=== PATIENT | female | born 1960 ===

== ENCOUNTER 2018-07-19 08:30 | Observation (INO) | payer MEDICAID ==
--- NOTE | 2018-07-19 08:38 | C.PDOC ---
History Of Present Illness 57 y/o female presents to the ER complaining of dizziness which has been present for the past few days. Patient states that she was evaluated for dizziness in [facility] yesterday. She had a negative CT Head and she was discharge with prescription for Meclizine. She notes that her dizziness feels like a vertigo, constant, since yesterday when she was seen. No trauma. She notes taking meclizine yesterday with mild improvement. She denies any new diets , GI, complaints or dark or bloody stool .Denies having CP, SOB, nausea, vomiting, and falls. Time Seen by Provider: 07/19/18 08:37 Chief Complaint (Nursing): Dizziness/Lightheaded History Per: Patient History/Exam Limitations: no limitations Onset/Duration Of Symptoms: Days Current Symptoms Are (Timing): Still Present Past Medical History Reviewed: Historical Data, Nursing Documentation, Vital Signs Vital Signs: Last Vital Signs Temp 98.8 F 07/19/18 08:33 Pulse 66 07/19/18 08:33 Resp 18 07/19/18 08:33 BP 113/78 07/19/18 08:33 Pulse Ox 98 07/19/18 10:37 - Medical History PMH: No Chronic Diseases Surgical History: No Surg Hx Family History: States: No Known Family Hx - Social History Hx Alcohol Use: No Hx Substance Use: No - Immunization History Hx Tetanus Toxoid Vaccination: No Hx Influenza Vaccination: No Hx Pneumococcal Vaccination: No Review Of Systems Except As Marked, All Systems Reviewed And Found Negative. Constitutional: Negative for: Fever, Chills Cardiovascular: Negative for: Chest Pain Respiratory: Negative for: Shortness of Breath Gastrointestinal: Negative for: Nausea, Vomiting Neurological: Positive for: Dizziness Physical Exam - Physical Exam Appears: Non-toxic, No Acute Distress Skin: Normal Color, Warm, Dry Head: Atraumatic, Normacephalic Eye(s): bilateral: Normal Inspection, PERRL, EOMI Nose: Normal Oral Mucosa: Moist Neck: Supple Chest: Symmetrical Cardiovascular: Rhythm Regular Respiratory: Normal Breath Sounds, No Rales, No Rhonchi, No Wheezing Extremity: Normal ROM Neurological/Psych: Oriented x3, Normal Speech, Normal Cognition, Normal Cranial Nerves, No Cerebellar Signs, Normal Motor, Normal Sensation Gait: Steady Other Neurological Findings: No Tongue Deviation Extremity: Right: No Drift, Left: No Drift ED Course And Treatment - Laboratory Results Result Diagrams: 07/19/18 09:48 07/19/18 09:48 O2 Sat by Pulse Oximetry: 98 (RA) Pulse Ox Interpretation: Normal Medical Decision Making Medical Decision Makin yr old female p/w recurrent dizziness after negative CT. Normal neuro exam, good gait, good finger to nose, good heel to zee, no cerebellar signs. However with recurrent dizziness refractory to meclizine will likely require observation for resolution of symptoms. No meningeal signs on my exam Plan: --Labs --ECG --Meclizine PO --IV Fluids 1312 pt notes that she is still dizzy, given unremarkable labs, well exam, will seek obs appreciate consult w/ Cristopher Dailey to admit to his service. Disposition - Disposition Disposition: HOSPITALIZED Disposition Time: 13:10 Condition: GOOD Instructions: Vertigo (a Type of Dizziness) Forms: [facility] (Serbian) - Clinical Impression Clinical Impression: Dizziness, Dizziness - Scribe Statement The provider has reviewed the documentation as recorded by the Adonis Tay Provider Attestation: All medical record entries made by the Elizabethibalec were at my direction and personally dictated by me. I have reviewed the chart and agree that the record accurately reflects my personal performance of the history, physical exam, medical decision making, and the department course for this patient. I have also personally directed, reviewed, and agree with the discharge instructions and disposition.
[2018-07-19 09:54] LABS: BASO % 0.8 % (0.0-2.0); EOS # 0.2 K/uL (0.0-0.7); EOS % 3.9 % (0.0-4.0); HEMOGLOBIN 13.5 g/dL (11.0-16.0); LYMPH # 1.7 K/uL (1.0-4.3); LYMPH % 33.4 % (20.0-40.0); MEAN CELL VOLUME 94.1 fL (81.0-99.0); MEAN CORPUSCULAR HEMOGLOBIN 32.1 pg (27.0-31.0); MEAN CORPUSCULAR HGB CONC 34.1 g/dL (33.0-37.0); MEAN PLATELET VOLUME 7.3 fL (7.2-11.7); MONO # 0.4 K/uL (0.0-0.8); MONO % 8.1 % (0.0-10.0); NEUT # 2.7 K/uL (1.8-7.0); NEUT % 53.8 % (50.0-75.0); NRBC % 0.1 % (0.0-2.0); RBC 4.21 Mil/uL (3.80-5.20); RED CELL DISTRIBUTION WIDTH 13.8 % (11.5-14.5)
[2018-07-19] MEDS ORDERED: Sodium Chloride 0.9% 1,000 ML IV ONE (09:59)
[2018-07-19 10:33] LABS: ALB/GLOB RATIO 1.6 (1.0-2.1); ALBUMIN 4.4 g/dL (3.5-5.0); ALT/SGPT 42 U/L (9-52); AST/SGOT 33 U/L (14-36); BLOOD UREA NITROGEN 11 mg/dL (7-17); CALCIUM 9.2 mg/dl (8.6-10.4); GFR NON-AFRICAN AMERICAN > 60
[2018-07-19] MEDS ORDERED: Sodium Chloride 0.9% 1,000 ML ONE (11:06)
[2018-07-19 12:29] LABS: SQUAMOUS EPITHIAL 2 /hpf (0-5); URINE BILIRUBIN NEGATIVE (NEGATIVE); URINE BLOOD 1+ (NEGATIVE); URINE CLARITY Clear (Clear); URINE COLOR Straw (YELLOW); URINE GLUCOSE (UA) NORMAL (Normal); URINE LEUKOCYTE ESTERASE NEG Leu/uL (Negative); URINE PROTEIN NEGATIVE (NEGATIVE); URINE UROBILINOGEN NORMAL mg/dL (0.2-1.0)
--- NOTE | 2018-07-19 16:43 | CP.PCM.HP ---
Past Patient History - Infectious Disease Hx of Infectious Diseases: None - Past Social History Smoking Status: Never Smoked - PSYCHIATRIC Hx Substance Use: No - SURGICAL HISTORY Hx Surgeries: No - ANESTHESIA Hx Anesthesia: No Meds Allergies/Adverse Reactions: Allergies Allergy/AdvReac Type Severity Reaction Status Date / Time No Known Allergies Allergy Verified 07/18/18 07:44 Results - Vital Signs Recent Vital Signs: Last Vital Signs Temp 98.0 F 07/19/18 16:00 Pulse 55 L 07/19/18 16:00 Resp 20 07/19/18 16:00 BP 147/80 07/19/18 16:00 Pulse Ox 98 07/19/18 16:00 - Labs Result Diagrams: 07/19/18 09:48 07/19/18 09:48 Labs: Laboratory Results - last 24 hr 07/19/18 07/19/18 07/19/18 09:48 09:48 12:21 WBC 5.0 RBC 4.21 Hgb 13.5 Hct 39.6 MCV 94.1 MCH 32.1 H MCHC 34.1 RDW 13.8 Plt Count 295 MPV 7.3 Neut % (Auto) 53.8 Lymph % (Auto) 33.4 [place] % (Auto) 8.1 Eos % (Auto) 3.9 Baso % (Auto) 0.8 Neut # (Auto) 2.7 Lymph # (Auto) 1.7 [place] # (Auto) 0.4 Eos # (Auto) 0.2 Baso # (Auto) 0.0 Sodium 144 Potassium 4.0 Chloride 107 Carbon Dioxide 29 Anion Gap 12 BUN 11 Creatinine 0.8 Est GFR ( Amer) > 60 Est GFR (Non-Af Amer) > 60 Random Glucose 100 Calcium 9.2 Magnesium 2.3 Total Bilirubin 0.7 AST 33 ALT 42 Alkaline Phosphatase 81 Troponin I < 0.0120 Total Protein 7.2 Albumin 4.4 Globulin 2.8 Albumin/Globulin Ratio 1.6 TSH 3rd Generation 2.02 Urine Color Straw Urine Clarity Clear Urine pH 6.0 Ur Specific [place] 1.006 Urine Protein Negative Urine Glucose (UA) Normal Urine Ketones Negative Urine Blood 1+ H Urine Nitrate Negative Urine Bilirubin Negative Urine Urobilinogen Normal Ur Leukocyte Esterase Neg Urine WBC (Auto) 1 Urine RBC (Auto) < 1 Ur Squamous Epith Cells 2
[2018-07-19] MEDS: Sodium Chloride 0.9% 1,000 ML IV SCH (17:40)
[2018-07-20] MEDS: Sodium Chloride 0.9% 1,000 ML IV SCH ×3 (03:03→23:30)
--- NOTE | 2018-07-20 07:35 | CP.PCM.CON ---
History of Present Illness - History of Present Illness History of Present Illness: CONSULTATION DICTATED DIZZINESS NON FOCAL HYDRATION ANTIVERT PRN IF MRI BRAIN NORMAL D/C HOME AND FOLLOW UP OP Past Patient History - Infectious Disease Hx of Infectious Diseases: None - Past Social History Smoking Status: Never Smoked - PSYCHIATRIC Hx Substance Use: No - SURGICAL HISTORY Hx Surgeries: No - ANESTHESIA Hx Anesthesia: No Meds Allergies/Adverse Reactions: Allergies Allergy/AdvReac Type Severity Reaction Status Date / Time No Known Allergies Allergy Verified 07/18/18 07:44 - Medications Medications: Current Medications Famotidine (Pepcid) 20 mg PO DAILY [facility] Sodium Chloride (Sodium Chloride 0.9%) 1,000 mls @ 100 mls/hr IV .Q10H [facility] Last Admin: 07/20/18 03:03 Dose: 100 mls/hr Meclizine HCl (Antivert) 25 mg PO Q6 PRN PRN Reason: Dizziness Pneumococcal Polyvalent Vaccine (Pneumovax 23 Vaccine) 0.5 ml IM .ONCE ONE Stop: 07/20/18 10:01 Results - Vital Signs Recent Vital Signs: Last Vital Signs Temp 98.1 F 07/20/18 00:42 Pulse 56 L 07/20/18 00:42 Resp 20 07/20/18 00:42 BP 100/56 L 07/20/18 00:42 Pulse Ox 98 07/20/18 00:42 - Labs Result Diagrams: 07/19/18 09:48 07/19/18 09:48 Labs: Laboratory Results - last 24 hr 07/19/18 07/19/18 07/19/18 09:48 09:48 12:21 WBC 5.0 RBC 4.21 Hgb 13.5 Hct 39.6 MCV 94.1 MCH 32.1 H MCHC 34.1 RDW 13.8 Plt Count 295 MPV 7.3 Neut % (Auto) 53.8 Lymph % (Auto) 33.4 [place] % (Auto) 8.1 Eos % (Auto) 3.9 Baso % (Auto) 0.8 Neut # (Auto) 2.7 Lymph # (Auto) 1.7 [place] # (Auto) 0.4 Eos # (Auto) 0.2 Baso # (Auto) 0.0 Sodium 144 Potassium 4.0 Chloride 107 Carbon Dioxide 29 Anion Gap 12 BUN 11 Creatinine 0.8 Est GFR ( Amer) > 60 Est GFR (Non-Af Amer) > 60 Random Glucose 100 Calcium 9.2 Magnesium 2.3 Total Bilirubin 0.7 AST 33 ALT 42 Alkaline Phosphatase 81 Troponin I < 0.0120 Total Protein 7.2 Albumin 4.4 Globulin 2.8 Albumin/Globulin Ratio 1.6 TSH 3rd Generation 2.02 Urine Color Straw Urine Clarity Clear Urine pH 6.0 Ur Specific [place] 1.006 Urine Protein Negative Urine Glucose (UA) Normal Urine Ketones Negative Urine Blood 1+ H Urine Nitrate Negative Urine Bilirubin Negative Urine Urobilinogen Normal Ur Leukocyte Esterase Neg Urine WBC (Auto) 1 Urine RBC (Auto) < 1 Ur Squamous Epith Cells 2
[2018-07-20] MEDS ORDERED: Pneumococcal 23-Valent Vaccine IM ONE ×2 (10:00→15:00)
[2018-07-20] MEDS: Enoxaparin 40 mg Syringe SC SCH (10:45)
--- NOTE | 2018-07-20 11:48 | MRI ---
Date of service: 07/20/2018 PROCEDURE: MRI BRAIN WITHOUT CONTRAST HISTORY: dizziness COMPARISON: Noncontrast head CT 07/18/2018. TECHNIQUE: Multiplanar, multisequence MR images of the brain were obtained without intravenous contrast enhancement. FINDINGS: HEMORRHAGE: None DWI: No evidence of an acute or early subacute infarction. BRAIN PARENCHYMA: Good corticomedullary differentiation is seen. Quite limited, proportional, diffuse expansion of the ventriculosulcal and cisternal spaces is appreciated with white matter lucency compatible with diffuse cerebral atrophy and chronic microangiopathy. No suspicious extra-axial fluid collection is identified and the midline brain anatomy appears grossly nonfocal as imaged. There is no mass effect throughout. VENTRICLES: Unremarkable. No hydrocephalus. CRANIUM: Unremarkable. ORBITS: Grossly unremarkable. PARANASAL SINUSES/MASTOIDS: Clear VASCULAR SYSTEM: Skull base flow voids intact. OTHER FINDINGS: Empty sella noted. IMPRESSION: Age-appropriate limited age related neuro degenerative change are identified involving the cerebrum, as discussed above. No acute intracranial findings by standard CT criteria. Empty sella noted.
--- NOTE | 2018-07-20 12:59 | CARD ---
APPROVED REPORT Date of service: 07/19/2018 EKG Measurement Heart [id number] <Conclusion> Sinus bradycardia Otherwise normal ECG
--- NOTE | 2018-07-20 13:08 | CP.PCM.PN ---
Subjective - Date & Time of Evaluation Date of Evaluation: 07/20/18 Time of Evaluation: 11:00 - Subjective Subjective: clinically same Objective - Vital Signs/Intake and Output Vital Signs (last 24 hours): Temp Pulse Resp BP Pulse Ox 98.4 F 57 L 20 104/69 99 07/20/18 07:25 07/20/18 07:25 07/20/18 07:25 07/20/18 07:25 07/20/18 07:25 Intake and Output: 07/20/18 07/20/18 06:59 18:59 Intake Total 800 Balance 800 - Medications Medications: Current Medications Enoxaparin Sodium (Lovenox) 40 mg SC DAILY [facility] Last Admin: 07/20/18 10:45 Dose: 40 mg Famotidine (Pepcid) 20 mg PO DAILY [facility] Last Admin: 07/20/18 10:45 Dose: 20 mg Sodium Chloride (Sodium Chloride 0.9%) 1,000 mls @ 100 mls/hr IV .Q10H [facility] Last Admin: 07/20/18 03:03 Dose: 100 mls/hr Meclizine HCl (Antivert) 25 mg PO Q6 PRN PRN Reason: Dizziness Last Admin: 07/20/18 10:46 Dose: 25 mg - Labs Labs: 07/19/18 09:48 07/19/18 09:48
--- NOTE | 2018-07-20 20:42 | CON ---
DATE: 07/20/2018 LOCATION: The patient is in room #553, bed A. ATTENDING PHYSICIAN: Jeremías Rosado MD TIME OF EVALUATION: 07:10 a.m. REASON FOR THE CONSULTATION: Dizziness. CHIEF COMPLAINT: The patient was brought into [facility] second time with a history of recurrent dizziness. From neurological point of view, I was called in to evaluate her for further management. HISTORY OF PRESENT ILLNESS: Ms. Alvina Victoria is a 57-year-old right-handed female presenting with recurrent episode of dizziness. She came to the emergency room in the past and she was sent home with conservative management; however, the dizziness is not getting better. They decided to come to the hospital for further evaluation. This dizziness is not associating with any headache, visual or bulbar dysfunction. No history of preceding viral illness or travel. She never had this problem in the past. PAST MEDICAL HISTORY: Unremarkable. PERSONAL HISTORY: Denies smoking, alcohol use. ALLERGIES: NO KNOWN ALLERGIES. MEDICATIONS: She is not on any medication at home. REVIEW OF SYSTEMS: A 12-point system being reviewed. From neuro, dizziness. PHYSICAL EXAMINATION: VITAL SIGNS: Blood pressure 104/69, mean arterial pressure of 80, respiratory rate 16, pulse rate 57 and regular, temperature 98.4. NECK: Supple. No carotid bruits. HEART: Sounds regular. CHEST: Fair air entry. EXTREMITIES: No edema. NEUROLOGICAL EXAMINATION: Mental status: The patient is examined in [place]ian. She is awake, alert, oriented to person, place and time. Speech is clear. Naming, repetition, fluency, comprehension all within normal. Cranial nerve: Visual field intact. Pupils reactive to light. Extraocular movement normal. No nystagmus. No facial sensory deficit. No facial asymmetry. Hearing is normal. Tongue is midline. Good gag. Motor: On outstretched hand with eyes closed, no drift noted. Power is symmetric on either side. Deep tendon reflexes biceps, brachioradialis 2+ on each side. Plantars are downgoing. Coordination: [id number] test is intact. [id number] is also normal. No rotary nystagmus also noted. CONCLUSION: As per neurological examination, Ms. Alvina Victoria has been suffering from possible vestibular neuronitis, which has been resolved with hydration and meclizine as a p.r.n. basis. The current examination does not show any sign at present. WORKUP: CT of the head reported as negative. BLOOD WORKUP: WBC 5.4, hemoglobin 13.5, hematocrit 39.6, platelets 295. Sodium 144, potassium 4, chloride 107, bicarbonate 29, BUN 11, creatinine 0.8, GFR more than 60. TSH 2.02. Urinalysis, 1+ hematuria. RECOMMENDATION: 1. Continue hydration. 2. MRI of the brain to rule out any structural cause or ischemic process. If the MRI brain is negative, the patient can be discharged, encourage her hydration and followup visit as outpatient. Tyrone Cortes MD
[2018-07-21] MEDS: Sodium Chloride 0.9% 1,000 ML IV SCH ×3 (01:25→11:24)
[2018-07-21 08:39] VITALS: BP 113/77; PULSE 58; RESP 20; TEMP 98.9; O2SAT 99
[2018-07-21] MEDS: Enoxaparin 40 mg Syringe SC SCH (09:51)
--- NOTE | 2018-07-21 10:31 | CP.PCM.PN ---
Subjective - Date & Time of Evaluation Date of Evaluation: 07/21/18 Time of Evaluation: 10:15 - Subjective Subjective: clinically same Objective - Vital Signs/Intake and Output Vital Signs (last 24 hours): Temp Pulse Resp BP Pulse Ox 98.9 F 58 L 20 113/77 99 07/21/18 08:38 07/21/18 08:38 07/21/18 08:38 07/21/18 08:38 07/21/18 08:38 - Medications Medications: Current Medications Acetaminophen (Tylenol 325mg Tab) 650 mg PO Q6 PRN PRN Reason: Headache Last Admin: 07/20/18 19:57 Dose: 650 mg Clopidogrel Bisulfate (Plavix) 75 mg PO DAILY [facility] Last Admin: 07/21/18 09:51 Dose: 75 mg Enoxaparin Sodium (Lovenox) 40 mg SC DAILY [facility] Last Admin: 07/21/18 09:51 Dose: 40 mg Famotidine (Pepcid) 20 mg PO DAILY [facility] Last Admin: 07/21/18 09:51 Dose: 20 mg Sodium Chloride (Sodium Chloride 0.9%) 1,000 mls @ 100 mls/hr IV .Q10H [facility] Last Admin: 07/21/18 09:51 Dose: Not Given Meclizine HCl (Antivert) 25 mg PO Q6 PRN PRN Reason: Dizziness Last Admin: 07/20/18 10:46 Dose: 25 mg - Labs Labs: 07/19/18 09:48 07/19/18 09:48
--- NOTE | 2018-07-21 11:45 | PN ---
DATE: 07/21/2018 NEUROLOGICAL PROBLEM: Dizziness. PHYSICAL EXAMINATION: VITAL SIGNS: Blood pressure 104/69, mean arterial pressure of 80, respiratory rate 18, pulse rate 59, temperature 98.2. The patient is asymptomatic. Dizziness all gone. The patient in Indonesian and no new symptoms or new complaints present. WORKUP: MRI of the brain shows small vessel disease. RECOMMENDATION: Considering her problem, could be a TIA manifesting of vertebrobasilar insufficiency. The patient should be placed on Plavix and that has to be continued for now. The patient is medically stable. The patient can be discharged and should have a followup visit with me as an outpatient. Tyrone Cortes MD
--- NOTE | 2018-07-21 14:47 | CP.PCM.PN ---
Subjective - Date & Time of Evaluation Date of Evaluation: 07/21/18 Time of Evaluation: 14:47 - Subjective Subjective: PATIENT SEEN AND EXAMINED Objective - Vital Signs/Intake and Output Vital Signs (last 24 hours): Temp Pulse Resp BP Pulse Ox 98.9 F 58 L 20 113/77 99 07/21/18 08:38 07/21/18 08:38 07/21/18 08:38 07/21/18 08:38 07/21/18 08:38 - Medications Medications: Current Medications Acetaminophen (Tylenol 325mg Tab) 650 mg PO Q6 PRN PRN Reason: Headache Last Admin: 07/20/18 19:57 Dose: 650 mg Clopidogrel Bisulfate (Plavix) 75 mg PO DAILY [facility] Last Admin: 07/21/18 09:51 Dose: 75 mg Enoxaparin Sodium (Lovenox) 40 mg SC DAILY [facility] Last Admin: 07/21/18 09:51 Dose: 40 mg Famotidine (Pepcid) 20 mg PO DAILY [facility] Last Admin: 07/21/18 09:51 Dose: 20 mg Sodium Chloride (Sodium Chloride 0.9%) 1,000 mls @ 100 mls/hr IV .Q10H [facility] Last Admin: 07/21/18 11:24 Dose: 100 mls/hr Meclizine HCl (Antivert) 25 mg PO Q6 PRN PRN Reason: Dizziness Last Admin: 07/20/18 10:46 Dose: 25 mg - Labs Labs: 07/19/18 09:48 07/19/18 09:48 Assessment and Plan - Assessment and Plan (Free Text) Assessment: FOLLOW UP WITH DR Desirae JIN IN HIS OFFICE IN 1-2 WEEKS ---CALL FOR APPOINTMENT FOLLOW UP WITH DR SETH IN HIS OFFICE ---CALL FOR APPOINTMENT CONTINUE HOME MEDICATION NEW PRESCRIPTION GIVEN PLAVIX 75 MG PO DAILY [facility] CALL DR Desirae JIN OR GO TO THE EMERGENCY ROOM IF SYMPTOMS RETURN OR WORSENING
== END 2018-07-21 16:25 | disposition home or self-care (01) ==
LOC: C.ER 08:30 → C.9E 13:05 → C.5S 14:50
PROVIDERS: ADMIT Internal Medicine Nephrology; ATTEND Internal Medicine Nephrology
DX: R42 Dizziness and giddiness (principal); R31.9 Hematuria, unspecified
CPT/HCPCS: 70551; 80053; 81001; 82948; 83735; 84443; 84484; 85025; 90471; 90732; 93005; 97116; 97162; 99285; G0378; G8978; G8979; J1650; J7030